=== PATIENT | female | born 1940 | race Caucasian/White ===

== ENCOUNTER 2021-09-27 14:30 | Inpatient (IN) | payer OTHER ==
[~2021-09-27] VITALS: Ht 154.9 cm; Wt 55.0 kg
[~2021-09-27 14:30] MED LIST: ALBU90OI INH; Keflex500 MG PO
[2021-09-27] MEDS ORDERED: ASPI81CH PO (20:01)
[2021-09-27] MEDS ORDERED: CALCIUM 500 MG1 EAC2 PO (20:13)
[2021-09-27] MEDS ORDERED: B-121000 MC3 PO (20:13)
[2021-09-27] MEDS ORDERED: LATANOPROST 0.7.5 M3 (20:14)
[2021-09-27] MEDS ORDERED: HYDCHL25 PO (20:15)
[2021-09-27] MEDS ORDERED: Prilosec Otc20 MG PO (20:16)
[2021-09-27] MEDS ORDERED: LORA10ER PO (20:16)
[2021-09-27] MEDS ORDERED: Prinivil10 MG PO (20:16)
[2021-09-27] MEDS ORDERED: POTA10T PO (20:17)
[2021-09-27 23:36] LABS: BASOPHILS ABSOLUTE AUTO 0.03 K/mm3 (0.00-0.23); BASOPHILS PERCENT AUTO 1 % (0-2); EOSINOPHILS ABSOLUTE AUTO 0.16 K/mm3 (0.00-0.68); EOSINOPHILS PERCENT AUTO 4 % (0-6); Hematocrit 28.4 % (33.0-51.0); Hemoglobin 9.6 g/dL (11.5-16.0); IMMATURE GRAN ABSOLUTE AUTO 0.01 K/mm3 (0.00-0.10); IMMATURE GRAN PERCENT AUTO 0 % (0-1); LYMPHOCYTES ABSOLUTE AUTO 1.08 K/mm3 (0.84-5.20); LYMPHOCYTES PERCENT AUTO 27 % (21-46); MONOCYTES ABSOLUTE AUTO 0.52 K/mm3 (0.16-1.47); MONOCYTES PERCENT AUTO 13 % (4-13); Mean Corpuscular HGB 31.5 pg (26.0-34.0); Mean Corpuscular HGB Conc 33.8 g/dL (31.5-36.5); Mean Corpuscular Volume 93 fL (80-100); Mean Platelet Volume 8.9 fL (9.1-12.4); NEUTROPHILS ABSOLUTE AUTO 2.14 K/mm3 (1.96-9.15); NEUTROPHILS PERCENT AUTO 54 % (41-73); Platelet Count 219 K/mm3 (150-400); RDW Coefficient Variation 14.7 % (11.7-14.2); RDW Standard Deviation 49.9 fL (35.1-46.3); Red Blood Cell Count 3.05 M/mm3 (3.80-5.20); White Blood Cell Count 3.94 K/mm3 (4.00-11.30)
[2021-09-27 23:55] LABS: Albumin, Blood 2.7 g/dL (3.4-5.0); Albumin/Globulin Ratio 0.8 (0.8-1.8); Bilirubin, Total 1.5 mg/dL (0.1-1.0); Bun/Creatinine Ratio 11.2 (12.0-20.0); Calcium, Blood 8.2 mg/dL (8.5-10.1); Creatinine, Blood 0.8 mg/dL (0.40-1.00); Globulin, Blood 3.3 g/dL (2.2-4.0); Potassium, Blood 2.9 mmol/L (3.5-5.5)
--- NOTE | 2021-09-28 04:09 | NUR ---
ASSUMED CARE OF PT AT 2345 HRS. PT IS A&OX4, SBA W/ FWW TO BR AND IS ABLE TO MAKE NEEDS KNOWN. ADMITED TO SURGICAL FLOOR TO WAIT FOR TRANSFER TO ANOTHER FACILITY TO HAVE ERCP FOR CHOLEDOCHOLITHIASIS. POTASSIUM WAS 2.9, IV REPLACEMENT INFUSING, PT TOLERATING WELL. PT ABLE TO REST BETWEEN CARES, SLEEPS 4+ HOURS THIS SHIFT. WILL CONTINUE TO MONITOR AND GIVE HANDOFF REPORT TO DAYSHIFT RN.
[2021-09-28 04:33] LABS: BASOPHILS ABSOLUTE AUTO 0.03 K/mm3 (0.00-0.23); BASOPHILS PERCENT AUTO 1 % (0-2); EOSINOPHILS ABSOLUTE AUTO 0.15 K/mm3 (0.00-0.68); EOSINOPHILS PERCENT AUTO 4 % (0-6); Hematocrit 29.9 % (33.0-51.0); Hemoglobin 9.8 g/dL (11.5-16.0); IMMATURE GRAN ABSOLUTE AUTO 0.01 K/mm3 (0.00-0.10); IMMATURE GRAN PERCENT AUTO 0 % (0-1); LYMPHOCYTES ABSOLUTE AUTO 1.14 K/mm3 (0.84-5.20); LYMPHOCYTES PERCENT AUTO 30 % (21-46); MONOCYTES ABSOLUTE AUTO 0.58 K/mm3 (0.16-1.47); MONOCYTES PERCENT AUTO 15 % (4-13); Mean Corpuscular HGB 31.1 pg (26.0-34.0); Mean Corpuscular HGB Conc 32.8 g/dL (31.5-36.5); Mean Corpuscular Volume 95 fL (80-100); Mean Platelet Volume 8.6 fL (9.1-12.4); NEUTROPHILS ABSOLUTE AUTO 1.94 K/mm3 (1.96-9.15); NEUTROPHILS PERCENT AUTO 50 % (41-73); Platelet Count 222 K/mm3 (150-400); RDW Coefficient Variation 14.7 % (11.7-14.2); RDW Standard Deviation 51.4 fL (35.1-46.3); Red Blood Cell Count 3.15 M/mm3 (3.80-5.20); White Blood Cell Count 3.85 K/mm3 (4.00-11.30)
[2021-09-28 04:53] LABS: Albumin, Blood 2.7 g/dL (3.4-5.0); Albumin/Globulin Ratio 0.8 (0.8-1.8); Bilirubin, Total 1.3 mg/dL (0.1-1.0); Bun/Creatinine Ratio 11.9 (12.0-20.0); Calcium, Blood 8.1 mg/dL (8.5-10.1); Creatinine, Blood 0.84 mg/dL (0.40-1.00); Globulin, Blood 3.3 g/dL (2.2-4.0); Magnesium, Blood 2.1 mg/dL (1.6-2.4); Potassium, Blood 3.4 mmol/L (3.5-5.5)
[2021-09-28 09:23] LABS: Source, Urine Clean Catch
[2021-09-28 09:26] LABS: Appearance, Urine Clear (Clear); Blood, Urine 2+ (Neg); Color, Urine Amber (P-Yellow); Glucose Qualitative, Urine Neg (Neg); Ketones, Urine 2+ (Neg); Leukocyte Esterase, Urine 3+ (Neg); Nitrite, Urine Neg (Neg); Protein, Urine 2+ (Neg); Specific Gravity, Urine 1.025 (1.003-1.022); Urobilinogen, Urine 1+ (Normal)
[2021-09-28 09:31] LABS: Bilirubin, Urine 1+ (Neg)
[2021-09-28 09:33] LABS: Bacteria Many /hpf; Squamous Epithelial Cells Many /hpf (Few); White Blood Cells, Urine 25-50 /hpf (0-5)
--- NOTE | 2021-09-28 17:35 | NUR ---
SHIFT SUMMARY PT REMAINS IN THE HOSPTAL WAITING FOR [place] TRANSFER FOR ERCP. PT IS A SBA TO THE BATHROOM. SHE IS TOLERATING CLEAR LIQUIDS. SHE DENIES PAIN AND NAUSEA. WILL MONITOR UNTIL REPORT TO HANNAH BENITEZ.
[2021-09-29 04:22] LABS: BASOPHILS ABSOLUTE AUTO 0.05 K/mm3 (0.00-0.23); BASOPHILS PERCENT AUTO 2 % (0-2); EOSINOPHILS ABSOLUTE AUTO 0.18 K/mm3 (0.00-0.68); EOSINOPHILS PERCENT AUTO 6 % (0-6); Hematocrit 27.2 % (33.0-51.0); Hemoglobin 8.9 g/dL (11.5-16.0); IMMATURE GRAN ABSOLUTE AUTO 0.01 K/mm3 (0.00-0.10); IMMATURE GRAN PERCENT AUTO 0 % (0-1); LYMPHOCYTES ABSOLUTE AUTO 1.22 K/mm3 (0.84-5.20); LYMPHOCYTES PERCENT AUTO 39 % (21-46); MONOCYTES ABSOLUTE AUTO 0.46 K/mm3 (0.16-1.47); MONOCYTES PERCENT AUTO 15 % (4-13); Mean Corpuscular HGB 31.7 pg (26.0-34.0); Mean Corpuscular HGB Conc 32.7 g/dL (31.5-36.5); Mean Corpuscular Volume 97 fL (80-100); Mean Platelet Volume 8.7 fL (9.1-12.4); NEUTROPHILS ABSOLUTE AUTO 1.22 K/mm3 (1.96-9.15); NEUTROPHILS PERCENT AUTO 39 % (41-73); Platelet Count 217 K/mm3 (150-400); RDW Coefficient Variation 14.7 % (11.7-14.2); RDW Standard Deviation 52.6 fL (35.1-46.3); Red Blood Cell Count 2.81 M/mm3 (3.80-5.20); White Blood Cell Count 3.14 K/mm3 (4.00-11.30)
[2021-09-29 04:41] LABS: Albumin, Blood 2.3 g/dL (3.4-5.0); Albumin/Globulin Ratio 0.8 (0.8-1.8); Bilirubin, Total 0.9 mg/dL (0.1-1.0); Bun/Creatinine Ratio 7.7 (12.0-20.0); Calcium, Blood 7.8 mg/dL (8.5-10.1); Creatinine, Blood 0.78 mg/dL (0.40-1.00); Globulin, Blood 2.9 g/dL (2.2-4.0); Potassium, Blood 3.4 mmol/L (3.5-5.5); Total Protein, Blood 5.2 g/dL (6.4-8.2)
--- NOTE | 2021-09-29 05:18 | NUR ---
SHIFT SUMMARY NO ACUTE CHANGES TO REPORT THIS SHIFT, STILL WAITING FOR A BED IN [place] FOR TRANSFER. NO CALL FROM ACCEPTING FACILITY THIS SHIFT. PT CONTINUES TO DENY ABD PAIN. SHE REPORTS THAT SHE IS PASSING GAS AND HAD A BM YESTERDAY. NO N/V, PT HAS BEEN AMBULATING TO THE BATHROOM WITH MINIMAL ASSESSMENT. VITALS STABLE. RESTFUL NIGHT OVERALL, BED IN LOWEST POSITION, CALL LIGHT WITHIN REACH.
--- NOTE | 2021-09-29 14:55 | NUR ---
PT HAS BEEN ALERT AND ORIENTED T/O THE DAY. PT HAS DENIED PAIN AND NAUSEA T/O THE DAY. SHE IS A SBA WHEN OOB. REPORT GIVEN TO FAISAL BENITEZ
--- NOTE | 2021-09-29 17:43 | NUR ---
SHIFT SUMMARY ASSUMED PT CARE AT APPROX 1700. PT A&OX4, MANDA CLD, REPOSITIONS SELF IN BED. IVF & ABX INFUSING PER EMAR. WILL REPORT TO ONCOMING HANNAH BENITEZ.
[2021-09-30 05:11] LABS: BASOPHILS ABSOLUTE AUTO 0.03 K/mm3 (0.00-0.23); BASOPHILS PERCENT AUTO 1 % (0-2); EOSINOPHILS ABSOLUTE AUTO 0.18 K/mm3 (0.00-0.68); EOSINOPHILS PERCENT AUTO 6 % (0-6); Hemoglobin 8.6 g/dL (11.5-16.0); IMMATURE GRAN ABSOLUTE AUTO 0.01 K/mm3 (0.00-0.10); IMMATURE GRAN PERCENT AUTO 0 % (0-1); LYMPHOCYTES ABSOLUTE AUTO 1.33 K/mm3 (0.84-5.20); LYMPHOCYTES PERCENT AUTO 46 % (21-46); MONOCYTES ABSOLUTE AUTO 0.45 K/mm3 (0.16-1.47); MONOCYTES PERCENT AUTO 16 % (4-13); Mean Corpuscular HGB 31.6 pg (26.0-34.0); Mean Corpuscular HGB Conc 33.1 g/dL (31.5-36.5); Mean Corpuscular Volume 96 fL (80-100); Mean Platelet Volume 8.8 fL (9.1-12.4); NEUTROPHILS PERCENT AUTO 31 % (41-73); Platelet Count 218 K/mm3 (150-400); RDW Coefficient Variation 14.6 % (11.7-14.2); Red Blood Cell Count 2.72 M/mm3 (3.80-5.20)
[2021-09-30 05:26] LABS: Albumin, Blood 2.3 g/dL (3.4-5.0); Albumin/Globulin Ratio 0.9 (0.8-1.8); Bilirubin, Total 0.8 mg/dL (0.1-1.0); Bun/Creatinine Ratio 9.3 (12.0-20.0); Calcium, Blood 7.9 mg/dL (8.5-10.1); Creatinine, Blood 0.75 mg/dL (0.40-1.00); Globulin, Blood 2.6 g/dL (2.2-4.0); Potassium, Blood 3.1 mmol/L (3.5-5.5); Total Protein, Blood 4.9 g/dL (6.4-8.2)
--- NOTE | 2021-09-30 05:49 | NUR ---
SUMMARY PT WITH NO REQUESTS OF PAIN MEDS TONIGHT.TOLERATING PO.WAITING FOR TRANSFER TO HIGHER LEVEL OF CARE/ERCP.
--- NOTE | 2021-10-01 05:20 | NUR ---
SHIFT SUMMARY NO ACUTE CHANGES TO REPORT THIS SHIFT, PT HAS RESTED MOST OF THE NIGHT. NO COMPLAINTS. PT DIET BEEN ADVANCED AND SHE IS TOLERATING PO INTAKE, APPETITE IS GOOD. VITALS ARE STABLE. PLAN IS FOR POSSIBLE DC TODAY, BED IN LOWEST POSITION, CALL LIGHT WITHIN REACH.
[2021-10-01] MEDS ORDERED: AUGMENTIN 500-1 EACH PO (12:10)
--- NOTE | 2021-10-01 12:38 | NUR ---
DISCHARGE NOTE: PATIENT WAS EDUCATED ON DISCHARGE INSTRUCTIONS. SHE VERBALIZED UNDERSTANDING OF INSTRUCTIONS. PATIENT DENIES ANY PAIN. SHE IS VOIDING, TOLERATING PO INTAKE, AND IS PASSING GAS. DENIES NAUSEA OR VOMITING. BOWEL TONES ARE ACTIVE. PATIENT DENIES TENDERNESS TO THE ABD. ABX PERSCRIPTION WAS FAXED TO HER PREFERRED PHARMACY WHICH IS THE [facility]. PATIENT IS DRESSED AND HAS PERSONAL ITEMS GATHERED. AWAITING FOR HER DAUGHTER TO COME PICK HER UP AND TAKE HER HOME.
--- NOTE | 2021-10-01 13:44 | NUR ---
PATIENT IS NOW BEING WHEELCHAIRED DOWN TO HER DAUGHTERS CAR. IV WAS TAKEN OUT AND WNL.
== END 2021-10-01 13:45 | disposition home or self-care (01) | DRG 445 ==
LOC: ER 14:30 → MEDS 21:40 → SURS 21:40
PROVIDERS: Internal Medicine; ADMIT Internal Medicine
PROC: BF37ZZZ Magnetic Resonance Imaging (MRI) of Pancreas (ICD-10-PCS; principal; 2021-09-27)
DX: K80.63 Calculus of gallbladder and bile duct with acute cholecystitis with obstruction (principal); N39.0 Urinary tract infection, site not specified; I10 Essential (primary) hypertension; R74.8 Abnormal levels of other serum enzymes; E80.6 Other disorders of bilirubin metabolism; K21.9 Gastro-esophageal reflux disease without esophagitis; J45.909 Unspecified asthma, uncomplicated; R94.5 Abnormal results of liver function studies; E87.6 Hypokalemia; E88.09 Other disorders of plasma-protein metabolism, not elsewhere classified; D64.9 Anemia, unspecified; E83.51 Hypocalcemia; Z79.82 Long term (current) use of aspirin; Z88.5 Allergy status to narcotic agent; Z88.1 Allergy status to other antibiotic agents; Z79.51 Long term (current) use of inhaled steroids; Z79.899 Other long term (current) drug therapy
CPT/HCPCS: 36415; 74181; 76705; 80053; 81001; 83735; 85025; 87086; 93005; 93010; 94760; 99285-25; A9270; J0295; J1650; J3480; J7030; J7050

== ENCOUNTER 2022-04-02 13:39 | Inpatient (IN) | payer OTHER ==
[~2022-04-02] VITALS: Ht 165.1 cm; Wt 63.5 kg
[~2022-04-02 13:39] MED LIST changes: +ASPI81CH PO; +AUGMENTIN 500-1 EACH PO; +B-121000 MC3 PO; +CALCIUM 500 MG1 EAC2 PO; +HYDCHL25 PO; +LATANOPROST 0.7.5 M3; +LORA10ER PO; +MAGNESIUM OXID500 MG PO; +OXYC5 PO; +POTA10T PO; +Prilosec Otc20 MG PO; +Prinivil10 MG PO
[2022-04-02 15:52] LABS: Hematocrit 25.9 % (33.0-51.0); Hemoglobin 8.2 g/dL (11.5-16.0)
[2022-04-02 16:05] LABS: Source, Urine Clean Catch
[2022-04-02 16:10] LABS: Appearance, Urine Clear (Clear); Bilirubin, Urine Neg (Neg); Blood, Urine 2+ (Neg); Color, Urine Yellow (P-Yellow); Glucose Qualitative, Urine Neg (Neg); Ketones, Urine Neg (Neg); Leukocyte Esterase, Urine 1+ (Neg); Nitrite, Urine Pos (Neg); Protein, Urine 1+ (Neg); Specific Gravity, Urine 1.005 (1.003-1.022); Urobilinogen, Urine NORM (Normal)
[2022-04-02 16:18] LABS: Bacteria Mod /hpf; Hyaline Casts 0-2 /lpf (0-2); Squamous Epithelial Cells Few /hpf (Few)
[2022-04-02 16:36] LABS: Stool Occult Blood Guaiac 1 Pos (Neg)
[2022-04-02] MEDS ORDERED: ALBU90OI INH (21:11)
[2022-04-02] MEDS ORDERED: LATA.005SO BOTHEYES (21:13)
[2022-04-02 21:36] LABS: Hematocrit 23.2 % (33.0-51.0); Hemoglobin 7.5 g/dL (11.5-16.0)
[2022-04-02] MEDS ORDERED: ACET500 PO (23:57)
[2022-04-02] MEDS ORDERED: LORA10ER PO (23:58)
[2022-04-03] MEDS ORDERED: ARTIFICIAL TEAR15 M2 BOTHEYES
--- NOTE | 2022-04-03 04:21 | NUR ---
SHIFT SUMMARY; NO ACUTE CHANGES OVERNIGHT. THE PT IS AXO X4 AND A 1 ASSIST TO THE BSC. THE PT HAS LR RUNNING AT 100MLS/HR. THE PT DENIES ANY PAIN, CHEST PAIN/PRESSURE OR SOB. CURRENTLY THE PT IS RESTING IN BED WITH THE BED IN THE LOWEST POSITION AND THE CALL LIGHT AT BEDSIDE. THE PT USES THE CALL LIGHT APPROPRIATELY AND IS ABLE TO MAKE HER NEEDS KNOWN.
[2022-04-03 05:12] LABS: Hematocrit 23.1 % (33.0-51.0); Hemoglobin 7.3 g/dL (11.5-16.0); Mean Corpuscular HGB 29.7 pg (26.0-34.0); Mean Corpuscular HGB Conc 31.6 g/dL (31.5-36.5); Mean Corpuscular Volume 94 fL (80-100); Mean Platelet Volume 8.8 fL (9.1-12.4); Platelet Count 193 K/mm3 (150-400); RDW Coefficient Variation 16.7 % (11.7-14.2); RDW Standard Deviation 56.9 fL (35.1-46.3); Red Blood Cell Count 2.46 M/mm3 (3.80-5.20)
[2022-04-03 05:31] LABS: International Normalized Ratio 1.11; Prothrombin Time Results 11.6 Sec (9.7-11.5)
[2022-04-03 06:10] LABS: Bun/Creatinine Ratio 19.3 (12.0-20.0); Calcium, Blood 8.1 mg/dL (8.5-10.1); Creatinine, Blood 0.83 mg/dL (0.40-1.00); Magnesium, Blood 2.1 mg/dL (1.6-2.4); Potassium, Blood 3.3 mmol/L (3.5-5.5)
--- NOTE | 2022-04-03 12:06 | NUR ---
IV SITE R WRIST PATENT.
[2022-04-03 12:21] LABS: Hematocrit 23.6 % (33.0-51.0); Hemoglobin 7.6 g/dL (11.5-16.0)
--- NOTE | 2022-04-03 12:23 | NUR ---
04/03/22 1223 Manuel Cabrales HISTORY, CHART, MEDICATIONS AND ALLERGIES REVIEWED BEFORE START OF PROCEDURE. PATIENT CONFIRMS NPO STATUS AND AGREES WITH SCHEDULED PROCEDURE. 3-LEAD EKG REVIEWED WITH PHYSICIAN PRIOR TO START OF PROCEDURE. MONITOR INTACT WITH CONTINUOUS PULSE OXIMETRY,CAPNOGRAPHY, 3-LEAD EKG, INTERMITTENT BP. SUPPLEMENTAL O2 TO BE TITRATED THROUGHOUT PROCEDURE TO MAINTAIN O2 SATURATION ABOVE 90%. PATIENT DETERMINED TO BE ASA APPROPRIATE FOR PROPOFOL SEDATION PRIOR TO START OF PROCEDURE BY DR. ARRIETA.
--- NOTE | 2022-04-03 17:12 | NUR ---
SHIFT SUMMARY PT 1 PERSON ASSIST UP TO BSC. HAD A SMALL HARD PELLET STOOL THIS MORNING AFTER CLEAR LIQUID BREAKFAST. OUT FOR EGD APPROX NOON AND RETURNED APPROX 1300 AND VS STARTED AND STABLE. DID REPORT FEELING VERY FULL AFTER BREAKFAST. SAT IN RECLINER FOR LUNCH AND ATE APPROX 1400. SAT IN CHAIR TIL 1500 AND LAYED BACK DOWN. ENCOURAGED TO SIT IN CHAIR FOR MEALS DUE TO HIATAL HERNIA. ZOFRAN GIVEN JUST PRIOR TO EGD DUE TO NAUSEA. STATES SHE IS PASSING GAS. SON IN TO VISIT FOR SHORT TIME THIS AFTERNOON.
--- NOTE | 2022-04-04 05:10 | NUR ---
PATIENT IS ALERT AND ORIENTED X4, CALM AND COOPERATIVE WITH CARE, [place]. NO N/V/D THIS SHIFT. NO SIGNS OF GI BLEED. VSS, MILD HEADACHE TREATED PER MAR. SLEPT WELL THROUGHOUT THE NIGHT. WILL CONT TO MONITOR.
[2022-04-04 05:16] LABS: BASOPHILS ABSOLUTE AUTO 0.03 K/mm3 (0.00-0.23); BASOPHILS PERCENT AUTO 1 % (0-2); EOSINOPHILS PERCENT AUTO 3 % (0-6); Hematocrit 21.4 % (33.0-51.0); Hemoglobin 6.9 g/dL (11.5-16.0); IMMATURE GRAN PERCENT AUTO 0 % (0-1); LYMPHOCYTES ABSOLUTE AUTO 1.51 K/mm3 (0.84-5.20); LYMPHOCYTES PERCENT AUTO 47 % (21-46); MONOCYTES ABSOLUTE AUTO 0.35 K/mm3 (0.16-1.47); MONOCYTES PERCENT AUTO 11 % (4-13); Mean Corpuscular HGB 30.1 pg (26.0-34.0); Mean Corpuscular HGB Conc 32.2 g/dL (31.5-36.5); Mean Corpuscular Volume 93 fL (80-100); Mean Platelet Volume 9.3 fL (9.1-12.4); NEUTROPHILS ABSOLUTE AUTO 1.22 K/mm3 (1.96-9.15); NEUTROPHILS PERCENT AUTO 38 % (41-73); Platelet Count 199 K/mm3 (150-400); RDW Coefficient Variation 16.9 % (11.7-14.2); RDW Standard Deviation 57.6 fL (35.1-46.3); Red Blood Cell Count 2.29 M/mm3 (3.80-5.20); White Blood Cell Count 3.21 K/mm3 (4.00-11.30)
[2022-04-04 05:46] LABS: Iron Serum 49 ug/dL (50-170); Percent Saturation 17.5 % (15.0-50.0); Total Iron Binding Capacity 280 ug/dL (250-450)
[2022-04-04 06:08] LABS: Albumin, Blood 2.6 g/dL (3.4-5.0); Anion Gap 3 mmol/L (6-16); Blood Urea Nitrogen 12 mg/dL (8-24); Bun/Creatinine Ratio 13.1 (12.0-20.0); CO2, Blood 25 mmol/L (21-32); Chloride, Blood 113 mmol/L (98-108); Creatinine, Blood 0.92 mg/dL (0.40-1.00); Ferritin, Serum 18 ng/mL (8-252); Glomerular Filtration Rate 62 (60-); Glucose, Blood 96 mg/dL (70-99); Potassium, Blood 3.5 mmol/L (3.5-5.5); Sodium, Blood 141 mmol/L (136-145)
[2022-04-04] MEDS ORDERED: ONDA4ODT MM (12:12)
--- NOTE | 2022-04-04 14:55 | NUR ---
DISCHARGE SUMMARY DISCHARGE, FOLLOWUP, AND MEDICATION INSTRUCTIONS GIVEN TO PT. PT VOICED COMPLETE UNDERSTANDING AND HAS NO QUESTIONS AT THIS TIME. IV REMOVED WITH CATHETER TIP INTACT. PT WAITING ON RIDE APPROVAL FROM [place]. WILL CONTINUE TO MONITOR UNTIL PT LEAVES UNIT. CALL LIGHT WITHIN REACH.
== END 2022-04-04 16:05 | disposition home or self-care (01) | DRG 391 ==
LOC: ER 13:39 → MEDS 15:27
PROVIDERS: Family Medicine; Nurse Practitioner Acute Care; Student in an Organized Health Care Education/Training Program; ADMIT Internal Medicine
PROC: 0DB68ZX Excision of Stomach, Via Natural or Artificial Opening Endoscopic, Diagnostic (ICD-10-PCS; 2022-04-03)
PROC: 0DB48ZX Excision of Esophagogastric Junction, Via Natural or Artificial Opening Endoscopic, Diagnostic (ICD-10-PCS; 2022-04-03)
PROC: 3E02340 Introduction of Influenza Vaccine into Muscle, Percutaneous Approach (ICD-10-PCS; 2022-04-03)
PROC: 0DB98ZX Excision of Duodenum, Via Natural or Artificial Opening Endoscopic, Diagnostic (ICD-10-PCS; 2022-04-03 12:00)
PROC: 30233N1 Transfusion of Nonautologous Red Blood Cells into Peripheral Vein, Percutaneous Approach (ICD-10-PCS; principal; 2022-04-04)
DX: K52.9 Noninfective gastroenteritis and colitis, unspecified (principal); K29.41 Chronic atrophic gastritis with bleeding; K56.609 Unspecified intestinal obstruction, unspecified as to partial versus complete obstruction; K92.0 Hematemesis; N39.0 Urinary tract infection, site not specified; D62 Acute posthemorrhagic anemia; K44.9 Diaphragmatic hernia without obstruction or gangrene; K22.89 Other specified disease of esophagus; K31.7 Polyp of stomach and duodenum; D63.8 Anemia in other chronic diseases classified elsewhere; I10 Essential (primary) hypertension; E87.6 Hypokalemia; K21.9 Gastro-esophageal reflux disease without esophagitis; J45.909 Unspecified asthma, uncomplicated; Z98.890 Other specified postprocedural states; Z90.49 Acquired absence of other specified parts of digestive tract; Z23 Encounter for immunization; Z88.0 Allergy status to penicillin; Z88.1 Allergy status to other antibiotic agents; Z88.5 Allergy status to narcotic agent; Z88.8 Allergy status to other drugs, medicaments and biological substances; Z79.82 Long term (current) use of aspirin; Z79.899 Other long term (current) drug therapy; Z79.811 Long term (current) use of aromatase inhibitors; Z79.891 Long term (current) use of opiate analgesic; Z91.011 Allergy to milk products; Z90.710 Acquired absence of both cervix and uterus; Z86.73 Personal history of transient ischemic attack (TIA), and cerebral infarction without residual deficits; Z79.51 Long term (current) use of inhaled steroids
CPT/HCPCS: 36415; 36430; 80048; 80069; 81001; 82272; 82607; 82728; 82746; 83540; 83550; 83735; 85014; 85018; 85025; 85027; 85610; 86850; 86900; 86901; 86923; 87086; 88305; 88342; 90686; 96361; 96374; 96375; 96376; 99285-25; A9270; C9113; G0378; J0696; J2405; J2704; J3480; J7030; J7050; J7120; P9016

== ENCOUNTER 2023-06-05 21:33 | Emergency (ER) | payer OTHER ==
[~2023-06-05] VITALS: Ht 152.4 cm; Wt 49.9 kg
[~2023-06-05 21:33] MED LIST changes: +ACET500 PO; +ARTIFICIAL TEAR15 M2 BOTHEYES; +LATA.005SO BOTHEYES; +ONDA4ODT MM
[2023-06-05] MEDS ORDERED: Droperidol 5 mg/2 ml Vial IM ONE (22:15)
[2023-06-05 23:06] LABS: BASOPHILS ABSOLUTE AUTO 0.04 K/mm3 (0.00-0.23); BASOPHILS PERCENT AUTO 0 % (0-2); EOSINOPHILS ABSOLUTE AUTO 0.01 K/mm3 (0.00-0.68); EOSINOPHILS PERCENT AUTO 0 % (0-6); Hematocrit 39.4 % (33.0-51.0); Hemoglobin 12.7 g/dL (11.5-16.0); IMMATURE GRAN ABSOLUTE AUTO 0.03 K/mm3 (0.00-0.10); IMMATURE GRAN PERCENT AUTO 0 % (0-1); LYMPHOCYTES ABSOLUTE AUTO 0.64 K/mm3 (0.84-5.20); LYMPHOCYTES PERCENT AUTO 6 % (21-46); MONOCYTES ABSOLUTE AUTO 0.81 K/mm3 (0.16-1.47); MONOCYTES PERCENT AUTO 8 % (4-13); Mean Corpuscular HGB 33.5 pg (26.0-34.0); Mean Corpuscular HGB Conc 32.2 g/dL (31.5-36.5); Mean Corpuscular Volume 104 fL (80-100); Mean Platelet Volume 8.5 fL (9.1-12.4); NEUTROPHILS ABSOLUTE AUTO 8.48 K/mm3 (1.96-9.15); NEUTROPHILS PERCENT AUTO 85 % (41-73); Platelet Count 286 K/mm3 (150-400); RDW Coefficient Variation 16.1 % (11.7-14.2); RDW Standard Deviation 62.2 fL (35.1-46.3); Red Blood Cell Count 3.79 M/mm3 (3.80-5.20); White Blood Cell Count 10.01 K/mm3 (4.00-11.30)
[2023-06-05 23:25] LABS: Albumin, Blood 4.3 g/dL (3.4-5.0); Albumin/Globulin Ratio 1.1 (0.8-1.8); Bilirubin, Total 0.7 mg/dL (0.1-1.0); Bun/Creatinine Ratio 16.1 (12.0-20.0); Calcium, Blood 10.2 mg/dL (8.5-10.1); Creatinine, Blood 1.18 mg/dL (0.40-1.00); Potassium, Blood 4.1 mmol/L (3.5-5.5); Total Protein, Blood 8.3 g/dL (6.4-8.2)
[2023-06-05] MEDS ORDERED: ONDA4ODT MM (23:53)
[2023-06-05] MEDS ORDERED: RX Prepack 2 Tabs Ondansetron ODT 4MG UD ONE (23:55)
[2023-06-06 00:15] VITALS: BP 115/85
== END 2023-06-06 00:24 | disposition home or self-care (01) ==
LOC: ER 21:33
PROVIDERS: Physician Assistant
DX: A08.4 Viral intestinal infection, unspecified (principal); Z88.8 Allergy status to other drugs, medicaments and biological substances; Z88.0 Allergy status to penicillin; Z88.5 Allergy status to narcotic agent; Z88.1 Allergy status to other antibiotic agents; Z79.899 Other long term (current) drug therapy; Z79.82 Long term (current) use of aspirin; I10 Essential (primary) hypertension; J45.909 Unspecified asthma, uncomplicated
CPT/HCPCS: 80053; 85025; 96372; 99284-25; A9270; J1790